=== PATIENT | female | born 1975 | race Caucasian/White ===

== ENCOUNTER → 2017-08-15 | Outpatient (CLI) | payer BC | END | disposition home or self-care (01) | LOC: MMGSC 12:13 | PROVIDERS: ATTEND Family Medicine | DX: N39.0 Urinary tract infection, site not specified (principal) | CPT/HCPCS: 87086 ==

== ENCOUNTER → 2017-11-02 | Outpatient (CLI) | payer BC | END | disposition home or self-care (01) | LOC: MMGSC 12:11 | PROVIDERS: ATTEND Family Medicine | DX: N39.0 Urinary tract infection, site not specified (principal) | CPT/HCPCS: 87077; 87086; 87186 ==

== ENCOUNTER → 2019-04-29 | Outpatient (CLI) | payer BC ==
--- NOTE | 2019-04-29 17:37 | CT ---
EXAMINATION TYPE: CT iac wo con DATE OF EXAM: 04/29/2019 COMPARISON: None HISTORY: Hearing Loss, right mastoid fullness posterior infection CT DLP: 150 mGycm Automated exposure control for dose reduction was used. FINDINGS: Very tiny amount of fluid may be within the couple of dependent right inferior mastoid air cells. No septal destruction is evident. Small amount of debris may be within the mid mastoid air cells. Left m astoid air cells are clear. There is some scattered debris within the mastoid air cells on the mullins l reconstructed images. This extends into the attic. This is in close approximation with the right si de ossicles although no definite contact is evident. Ossicles are normal orientation bilaterally. The middle ears appear clear. Cochlea appear normal external auditory canals appear clear. Temporoman dibular junctions are normal. Semicircular canals are unremarkable. Internal auditory canals appear n ormal without expansion or erosion. Cerebellar pontine angles are clear. IMPRESSION: FINDINGS APPEAR SUGGESTIVE FOR RESOLVING RIGHT MASTOIDITIS. SUSPICIOUS AIR-FLUID LEVELS OR SEPTAL BENITA TRUCTION IS NOT IDENTIFIED. DEBRIS REMAINS PRESENT WITHIN THE AERATED RIGHT SIDE MASTOID AIR CELLS.
== END | disposition home or self-care (01) ==
LOC: RADCTMAIN 14:02
PROVIDERS: ATTEND Otolaryngology
DX: H70.91 Unspecified mastoiditis, right ear (principal); H93.8X1 Other specified disorders of right ear
CPT/HCPCS: 70480

== ENCOUNTER → 2022-04-07 | Outpatient (CLI) | payer BC ==
--- NOTE | 2022-04-08 05:16 | MR ---
EXAMINATION TYPE: MR hip RT wo con DATE OF EXAM: 04/07/2022 COMPARISON: None HISTORY: Limited movement and pain right hip Multiplanar multiecho imaging of the pelvis and right hip with no contrast. On the T1 images there is abnormal decreased signal a large area of the superior right femoral head. There is curvilinear decreased signal in the superior left femoral head. The acetabula appear intact. Sacroiliac joints are intact. There is right hip joint effusion. No evidence of any significant left hip joint effusion. There is small amount of free fluid in the pelvis. Bladder distends smoothly. 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 Hip joint effusion. There is developing avascular necrosis in the left femoral head.
== END | disposition home or self-care (01) ==
LOC: RADMRIMAIN 15:01
PROVIDERS: ATTEND Orthopaedic Surgery
DX: M25.551 Pain in right hip (principal)

== ENCOUNTER → 2022-09-02 | Outpatient (CLI) | payer BC ==
[2022-09-02 16:15] LABS: Basophils # (A) 0.02 X 10*3/uL (0.00-0.10); Basophils % (A) 0.2 %; Eosinophils # (A) 0.02 X 10*3/uL (0.04-0.35); Eosinophils % (A) 0.2 %; HCT 40.4 % (37.2-46.3); HGB 12.6 g/dL (12.0-15.0); Immature Grans, Automated 0.4 %; Lymphocytes # (A) 0.95 X 10*3/uL (0.90-5.00); Lymphocytes % (A) 11.2 %; MCH 32.4 pg (27.0-32.0); MCHC 31.2 g/dL (32.0-37.0); MCV 103.9 fL (80.0-97.0); Monocytes # (A) 0.44 X 10*3/uL (0.20-1.00); Monocytes % (A) 5.2 %; NRBC Per 100 WBC 0 /100 WBCS (0.0-0.0); Neutrophils # (A) 7.04 X 10*3/uL (1.80-7.70); Neutrophils % (A) 82.8 %; Platelet Count 372 X 10*3/uL (140-440); RBC 3.89 X 10*6/uL (4.10-5.20)
[2022-09-02 16:23] LABS: INR 0.86 (0.90-1.11); Prothrombin Time 9.8 sec (9.9-11.9)
[2022-09-02 16:24] LABS: African American GFR (CKD) 77.7 (60.0-200.0); Anion Gap 11.5 mmol/L (10.00-18.00); BUN/Creat Ratio 13.98 Ratio (12.00-20.00); Blood Urea Nitrogen 13.9 mg/dL (9.0-27.0); Calcium 9.3 mg/dL (8.7-10.3); Carbon Dioxide 25.1 mmol/L (20.0-27.5); Non-African American GFR(CKD) 67.1 (60.0-200.0); Potassium 5.4 mmol/L (3.5-5.5)
== END | disposition home or self-care (01) ==
LOC: LABPAT 08:35
PROVIDERS: ATTEND Orthopaedic Surgery
DX: Z01.812 Encounter for preprocedural laboratory examination (principal); Z22.322 Carrier or suspected carrier of Methicillin resistant Staphylococcus aureus; M16.11 Unilateral primary osteoarthritis, right hip
CPT/HCPCS: 80048; 85025; 85610; 87070

== ENCOUNTER 2022-09-12 05:50 | Day surgery (SDC) | payer BC ==
[2022-09-08 15:31] VITALS: BMI 25.7
--- NOTE | 2022-09-11 08:22 | P.HPOR ---
History of Present Illness H&P Date: 09/11/22 Chief Complaint: Right hip pain The patient is a 47-year-old female who presents with progressive right hip pain for the past year and a half. She has pain with weightbearing activities. She's been limping. She notes it has progressed. Review of Systems As per HPI Past Medical History Past Medical History: Liver Disease Additional Past Medical History / Comment(s): pneumothorax x2. Wilsons disease History of Any Multi-Drug Resistant Organisms: None Reported Past Surgical History: Ear Surgery Additional Past Surgical History / Comment(s): liver transplant, lung surgery Past Anesthesia/Blood Transfusion Reactions: No Reported Reaction Additional Past Anesthesia/Blood Transfusion Reaction / Comment(s): after ear surgery pt said she came out of anesthesia "real fast" and caused some anxiety Past Psychological History: Anxiety Smoking Status: Never smoker Past Alcohol Use History: None Reported Past Drug Use History: None Reported - Past Family History Mother Family Medical History: No Reported History Medications and Allergies Home Medications Medication Instructions Recorded Confirmed Type Atorvastatin [Lipitor] 20 mg PO HS 09/08/22 09/08/22 History Butalb/Acetaminophen/Caffeine 1 each PO DIRECTED PRN 09/08/22 09/08/22 Histo ry [Fioricet 50-300-40 mg Capsule] Cyclosporine, Modified [Gengraf] 50 mg PO BID 09/08/22 09/08/22 History LORazepam [Ativan] 1 mg PO DIRECTED PRN 09/08/22 09/08/22 History Magnesium Oxide [Magnesium] 400 mg PO HS 09/08/22 09/08/22 History Magnesium Oxide [Magnesium] 800 mg PO QA 09/08/22 09/08/22 History Norethindrone [Elysia] 0.35 mg PO DAILY 09/08/22 09/08/22 History Omeprazole 20 mg PO HS 09/08/22 09/08/22 History amLODIPine BESYLATE/BENAZEPRIL 1 cap PO DAILY 09/08/22 09/08/22 History [amLODIPine BESYLATE/BENAZEPRIL 5-20 mg] azaTHIOprine [Imuran] 100 mg PO BID 09/08/22 09/08/22 History Allergies Allergy/AdvReac Type Severity Reaction Status Date / Time casirivimab Allergy Rash/Hives Verified 09/08/22 15:11 fluconazole [From Diflucan] Allergy Rash/Hives Verified 09/08/22 15:11 levofloxacin [From Levaquin] Allergy Rash/Hives Verified 09/08/22 15:11 nitrofurantoin Allergy Rash/Hives Verified 09/08/22 15:11 Penicillins Allergy Rash/Hives Verified 09/08/22 15:11 Sulfa (Sulfonamide Allergy Rash/Hives Verified 09/08/22 15:11 Antibiotics) morphine AdvReac Itching Verified 09/08/22 15:11 Physical Examination - Hip right Gait: antalgic Tenderness with palpation: anterior Pain with motion: internal rotation and hip flexion ROM: flexion: 80 degrees ROM: internal rotation: 0 degrees (With pain) ROM: external rotation: 50 degrees Crepitus with motion: Yes Strength: extension: 5/5 Strength: flexion: 5/5 Strength: abduction: 5/5 Tests: impingement tests: positive Results The patient is a well-developed well-nourished female approximately 5 foot 7, 150 pounds of mesomorphic habitus. HEENT exam is nonfocal, neck is supple. She is nontender about the lumbar spine. Straight leg raise is negative and the right lower extremity. Her distal neurovascular appears intact in the right lower extremity. - Diagnostic results Hip x-ray: image reviewed (Right hip x-rays obtained in the office show avascular necrosis of the right femoral head with collapse. 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 This point she's quite limited because of pain that has progressed. After through discussion she opted to proceed with surgery. We will plan to proceed with right total hip arthroplasty utilizing a direct anterior approach. Risks and benefits were discussed at length in layman's terms. She has been off her immunosuppressive medications per her transplant physician.
[~2022-09-12 05:50] MED LIST: ACETAMINOPHEN TAB 500 MG TAB PO PRN; MELOXICAM 7.5 MG TAB PO PRN; TRANEXAMIC ACID IN NACL,ISO-OS 1,000 MG in SALINE 1 100ML.BAG IVPB PRN
[2022-09-12] MEDS ORDERED: DEXAMETHASONE SOD PHOSPHATE 4 MG/ML 1 ML VIAL IV ONE (06:17)
[2022-09-12] MEDS ORDERED: LIDOCAINE 1% (10MG/ML) FOR IV START INTRADERMA PRN (06:17)
[2022-09-12] MEDS ORDERED: ONDANSETRON 4 MG/2 ML VIAL IVP ONE (06:17)
[2022-09-12] MEDS: LACTATED RINGERS 1,000 ML IV SCH (06:43)
[2022-09-12] MEDS ORDERED: SCOPOLAMINE 1 MG/72 HR PATCH TRANSDERM ONE (07:37)
[2022-09-12] MEDS ORDERED: MIDAZOLAM 2 MG/2 ML VIAL IVP ONE (07:48)
[2022-09-12] MEDS ORDERED: fentaNYL (PF) 50 MCG/1 ML VIAL IVP ONE (07:48)
[2022-09-12] MEDS ORDERED: diphenhydrAMINE 50 MG/ML 1 ML VIAL ONE (07:55)
[2022-09-12] MEDS ORDERED: MIDAZOLAM 2 MG/2 ML VIAL ONE (07:55)
[2022-09-12] MEDS ORDERED: PROPOFOL 10 MG/ML 20 ML VIAL IV ONE (07:55)
[2022-09-12] MEDS ORDERED: TRANEXAMIC ACID IN NACL,ISO-OS 1,000 MG/100 ML BAG ONE (07:55)
[2022-09-12] MEDS ORDERED: LIDOCAINE 2% INJ 20 MG/ML (2 ML VIAL) ONE (07:55)
[2022-09-12] MEDS ORDERED: SUCCINYLCHOLINE CHLORIDE 200 MG/10 ML VIAL IV ONE (07:55)
[2022-09-12] MEDS ORDERED: fentaNYL (PF) 50 MCG/ML 2 ML AMP ONE (07:55)
[2022-09-12] MEDS ORDERED: ROPIVACAINE 5 MG/ML 30 ML VIAL ONE (07:55)
[2022-09-12] MEDS ORDERED: PHENYLEPHRINE-0.9% NACL SYG 1,000 MCG/10 ML SYRINGE ONE (07:55)
--- NOTE | 2022-09-12 07:59 | P.ANPRN ---
Procedure Note - Anesthesia - Nerve Block Performed Right Erector Spinae Time Out Performed: Yes Date of Procedure: 09/12/22 Procedure Start Time: 07:40 Procedure Stop Time: 07:55 Location of Patient: PreOp Indication: Acute Post-Operative Pain, Requested by Surgeon Sedation Type: Sedate with meaningful contact maintained Preparation: Sterile Prep, Sterile Dressing Position: Prone Needle Types: Pajunk Needle Gauge: 21 Ultrasound used to visualize needle placement: Yes Ultrasound used to observe medication spread: Yes Injectate: 0.5% Ropivacaine (see comment for volume) Blood Aspirated: No Pain Paresthesia on Injection Noted: No Resistance on Injection: Normal Image Stored and Saved: Yes Events: Uneventful and Well Tolerated
[2022-09-12] MEDS ORDERED: LACTATED RINGERS 1,000 ML IV ONE (09:30)
[2022-09-12] MEDS ORDERED: HYDROmorphone 1 MG/ML 1 ML SYRINGE IVP PRN (10:00)
[2022-09-12] MEDS ORDERED: MAGNESIUM HYDROXIDE 2,400 MG/10 ML CUP PO PRN (10:00)
[2022-09-12] MEDS ORDERED: HYDROcodone/APAP 5-325MG 1 EACH TAB PO PRN (10:00)
[2022-09-12] MEDS ORDERED: NALOXONE 0.4 MG/ML 1 ML VIAL IV PRN (10:00)
--- NOTE | 2022-09-12 10:20 | P.OP ---
Date of Procedure: 09/12/22 Preoperative Diagnosis: Right hip avascular necrosisstage III Postoperative Diagnosis: Same Procedure(s) Performed: Right total hip arthroplastypress-fitanterior approach Implants: Depuy Corail size 07/25/2025 degree collared press-fit femoral stem, 36+1.5 ceramic femoral head, 52 mm Rebecca acetabular shell with neutral polyethylene liner. Anesthesia: GETA, regional, spinal Surgeon: Leroy Carreno Roller Turner #1: Hilton Merino Estimated Blood Loss (ml): 100 Pathology: other (Femoral head) Condition: stable Disposition: PACU Indications for Procedure: The patient's a 47-year-old female presents with progressive right hip pain secondary to avascular necrosis. A discussion of the risks and benefits of operative intervention was made with patient. She opted to proceed with surgery. She was off her immunosuppressive medications prior the procedure. He discussion of the risks and benefits of the operative procedure were discussed including infection, neurovascular injury, development of blood clots, fracture, leg length discrepancy, possible component loosening/failure and need for subsequent procedures was discussed. Informed consent was obtained. Operative Findings: As below Description of Procedure: The patient was brought to the operating room, and after induction of spinal anesthesia was placed supine on the Maureen table. Positioning was checked with fluoroscopy. The right hip was then prepped and draped in a normal fashion. A 12 cm incision was then made starting 2 fingerbreadths distal and 3 finger breaths posterior to the ASIS in line with the proximal femur. The skin was incised sharply. Subcutaneous tissues were divided sharply. Electrocautery was used for hemostasis. The fascia was split in line with skin incision. The interval between the sartorius and tensor fascia quintin was then bluntly developed. The posterior fascia was opened with electrocautery. The lateral circumflex vessels were identified and cauterized prior to sectioning. A retractor was placed along the superior femoral neck as well as the anterior acetabular rim. A wide capsulotomy was performed. The neck cut was then made at a 45 angle to the shaft approximately 1 1/2 cm above the level of the lesser trochanter. The head was extracted. Attention was then paid towards preparing the acetabular. Anterior and posterior retractors were placed. The remaining capsular labral tissue sharply debrided clearly defining the acetabular margins. I began reaming with a 45 mm reamer taking care to initially medialize then reaming at 45 of abduction and 20 of anteversion. Sequential reaming is performed up to 51 mm. A trial to 2 mm acetabular shell was inserted in the same orientation and was fully seated. There was good rim fit and stability. Positioning was checked with fluoroscopy. The final to 2 mm acetabular shell was inserted again at 45 of abduction and 20 of anteversion. This was fully seated. There was good rim fit and stability. I did place a posterior superior screw measuring 25 mm x 6.5 mm with good purchase. Again fluoroscopy was used to check the adequacy of placement. A neutral polyethylene liner was gently impacted. Care was taken to avoid any soft tissue interposition. Pulsatile lavage was utilized. Attention was then paid towards preparing the proximal femur. The central region was cleared of soft tissue. A canal finder was used to find the femoral canal. Sequential broaching was performed up to size 11 taking care to lateralize proximally. A calcar mill was used to fashion the medial calcar. There was good rotational stability. A 125 neck along with a 36 mm +1.5 head was placed. The hip was gently reduced. Fluoroscopy was used to check the adequacy of positioning along with leg lengths. I felt both were good. The hip was gently dislocated. The trial components were removed. The final size 11 collared 125 press-fit femoral stem was inserted parallel to the posterior cortex. This was fully seated and there was good rotational stability. A 36 mm +1.5 ceramic head was placed. This was gently impacted. The hip was then gently reduced. Final fluoroscopic view showed adequate placement implant along with confucianism of leg length. Stability was checked with 80 of external rotation and 60 of extension of the right hip. The wound was irrigated with sterile lavage. The fascia was closed with running 0 Vicryl suture. There was minimal drainage therefore a deep drain was not placed. The second dose of IV TXA was given. The subcutaneous tissues were reapproximated interrupted 2-0 Vicryl sutures. The skin was reapproximated with 3-0 subcuticular strata fix suture. Skin tape and adhesive was applied. A sterile dressing was applied. The patient was then awoken from sedation and transferred to recovery room in good condition. Blood loss was estimated at 100 mL. No complications were incurred. Sponge and needle counts were correct at the end of the case. Hilton HAIRSTON assisted during the major components is case to include exposure, bone resection, implantation, and closure.
[2022-09-12] MEDS: HYDROmorphone 0.5 MG/0.5 ML SYRINGE IVP PRN ×4 (10:37→20:23)
--- NOTE | 2022-09-12 11:01 | FL ---
Intraoperative/procedural fluoroscopic services were provided. Total fluoroscopy time is 58 seconds w ith a total of 3 submitted images to PACS. Please see the operative/procedural note for further detai ls.
--- NOTE | 2022-09-12 11:02 | XR ---
EXAMINATION TYPE: XR Hip Limited RT DATE OF EXAM: 09/12/2022 10:37 AM INDICATION: Patient age:Female; 47 years old; Reason for study: post op; COMPARISON: Right hip MRI. TECHNIQUE: The right hip was examined in the frontal. FINDINGS: Post arthroplasty changes, hardware is intact, alignment is appropriate. No evidence of fra cture. Postoperative changes soft tissue. No evidence of any acute osseous pathology or joint disloca tion. IMPRESSION: Total hip arthroplasty with hardware intact and in appropriate alignment. No acute fracture.
[2022-09-12] MEDS: HYDROcodone/APAP 7.5-325MG 1 EACH TAB PO PRN ×2 (12:20→18:31)
[2022-09-12] MEDS ORDERED: LORazepam 1 MG TAB PO PRN (13:18)
--- NOTE | 2022-09-12 13:21 | P.CONS ---
History of Present Illness - Reason for Consult Consult date: 09/12/22 med management - Chief Complaint s/p right hip arthroplasty - History of Present Illness Patient is a 47-year-old female with history of Preet's disease, status post liver transplant, avascular necrosis of right hip presenting for elective right total hip arthroplasty. [facility] [place] physicians was consulted for medical management. She denies any chest pain, shortness of breath, abdominal pain, nausea, vomiting, diarrhea, constipation, or urinary complaints. She claims that she has some pain in her right hip at the moment. She has not gotten out of bed as of yet. Patient seen and examined at bedside. Pertinent positives and negatives as discussed in HPI, a complete review of systems was performed and all other systems are negative. Vital signs reviewed General: nontoxic, no distress, appears at stated age Derm: warm, dry, right hip dressing clean dry and intact Head: atraumatic, normocephalic, symmetric Eyes: EOMI, no lid lag, anicteric sclera, pupils equal round reactive to light ENT: Nose and ears atraumatic Neck: No thyromegaly, supple Mouth: no lip lesion, mucus membranes moist Cardiovascular: S1S2 reg, no murmur, no edema Lungs: clear to auscultation bilateral, no rhonchi, no rales, no wheeze, no accessory muscle use Abdominal: soft, nontender to palpation, no guarding, no appreciable organomegaly Ext: no gross muscle atrophy, muscle strength muscle strength 5 out of 5 in all 4 extremities, no contractures Neuro: CN II-XII grossly intact Psych: Alert, oriented, appropriate affect Assessment/Plan: Avascular necrosis of right hip Status post total right hip arthroplasty -Management per orthopedics with regards to pain management, DVT prophylaxis -PT/OT History of Preet's disease Status post liver transplant History of hypertension -Home medications reviewed and reconciled Thank you for allowing us to participate in the care of this pleasant patient. Do not hesitate to contact us with questions. Someone can be reached from the [facility] [place] [facility] hospitalist group all hours of the day at [phone] or via [employer]. Past Medical History Past Medical History: Liver Disease Additional Past Medical History / Comment(s): pneumothorax x2. Wilsons disease History of Any Multi-Drug Resistant Organisms: None Reported Past Surgical History: Ear Surgery Additional Past Surgical History / Comment(s): liver transplant, lung surgery Past Anesthesia/Blood Transfusion Reactions: No Reported Reaction Additional Past Anesthesia/Blood Transfusion Reaction / Comm: after ear surgery pt said she came out of anesthesia "real fast" and caused some anxiety Smoking Status: Never smoker - Past Family History Mother Family Medical History: No Reported History Medications and Allergies Home Medications Medication Instructions Recorded Confirmed Type Atorvastatin [Lipitor] 20 mg PO HS 09/08/22 09/08/22 History Butalb/Acetaminophen/Caffeine 1 each PO DIRECTED PRN 09/08/22 09/12/22 History [Fioricet 50-300-40 mg Capsule] Cyclosporine, Modified [Gengraf] 50 mg PO BID 09/08/22 09/08/22 History LORazepam [Ativan] 1 mg PO DIRECTED PRN 09/08/22 09/08/22 History Magnesium Oxide [Magnesium] 400 mg PO HS 09/08/22 09/08/22 History Magnesium Oxide [Magnesium] 800 mg PO QAM 09/08/22 09/08/22 History Norethindrone [Elysia] 0.35 mg PO DAILY 09/08/22 09/08/22 History Omeprazole 20 mg PO HS 09/08/22 09/08/22 History amLODIPine BESYLATE/BENAZEPRIL 1 cap PO DAILY 09/08/22 09/08/22 History [amLODIPine BESYLATE/BENAZEPRIL 5-20 mg] azaTHIOprine [Imuran] 100 mg PO BID 09/08/22 09/08/22 History Allergies Allergy/AdvReac Type Severity Reaction Status Date / Time casirivimab Allergy Rash/Hives Verified 09/12/22 06:22 fluconazole [From Diflucan] Allergy Rash/Hives Verified 09/12/22 06:22 levofloxacin [From Levaquin] Allergy Rash/Hives Verified 09/12/22 06:22 nitrofurantoin Allergy Rash/Hives Verified 09/12/22 06:22 Penicillins Allergy Rash/Hives Verified 09/12/22 06:22 Sulfa (Sulfonamide Allergy Rash/Hives Verified 09/12/22 06:22 Antibiotics) morphine AdvReac Itching Verified 09/12/22 06:22 Physical Exam Vitals: Vital Signs Temp Pulse Pulse Resp BP Pulse Ox 09/12/22 10:44 73 16 138/66 98 09/12/22 10:29 75 16 136/63 98 09/12/22 10:14 97 F L 90 16 129/73 09/12/22 08:00 92 16 136/92 100 09/12/22 06:49 98.0 F 92 18 142/86 100 Intake and Output 09/11/22 09/12/22 09/12/22 22:59 06:59 14:59 Intake Total 100 1600 Output Total 100 Balance 100 1500 Intake: IV 100 1600 Output: Estimated Blood Loss 100 Other: Weight 69 kg 69 kg
[2022-09-12] MEDS ORDERED: PANTOPRAZOLE 40 MG TABLET PO SCH (21:00)
[2022-09-12] MEDS ORDERED: ATORVASTATIN 20 MG TAB PO SCH (21:00)
[2022-09-12] MEDS ORDERED: SENNOSIDES-DOCUSATE SODIUM 1 EACH TAB PO SCH (21:00)
[2022-09-12] MEDS ORDERED: azaTHIOprine 50 MG TAB PO SCH (21:00)
[2022-09-12] MEDS ORDERED: MAGNESIUM OXIDE 400 MG TAB PO SCH (21:00)
[2022-09-13] MEDS: HYDROcodone/APAP 7.5-325MG 1 EACH TAB PO PRN ×3 (00:33→12:36)
[2022-09-13] MEDS ORDERED: azaTHIOprine 50 MG TAB PO SCH ×4 (02:23→18:00)
[2022-09-13] MEDS: amLODIPine 5 MG TAB PO SCH ×2 (05:39→08:38)
[2022-09-13] MEDS ORDERED: MAGNESIUM OXIDE 400 MG TAB PO SCH (06:00)
[2022-09-13] MEDS ORDERED: lisinopriL 20 MG TAB PO SCH (06:00)
[2022-09-13] MEDS: LACTATED RINGERS 1,000 ML IV SCH (06:21)
[2022-09-13 08:26] VITALS: BP 139/78; PULSE 96; RESP 16; TEMP 98.2
[2022-09-13] MEDS: HYDROmorphone 0.5 MG/0.5 ML SYRINGE IVP PRN (08:44)
[2022-09-13] MEDS ORDERED: RIVAROXABAN 10 MG TAB PO SCH (09:00)
[2022-09-13] MEDS ORDERED: NON FORMULARY DRUG (Norethindrone [Camila] 0.35 MG Tablet) PO SCH (09:00)
[2022-09-13 10:17] LABS: HCT 32.3 % (37.2-46.3); HGB 10.1 g/dL (12.0-15.0); MCH 33.1 pg (27.0-32.0); MCHC 31.3 g/dL (32.0-37.0); MCV 105.9 fL (80.0-97.0); Mean Platelet Volume 11.1 fL (9.5-12.2); NRBC Per 100 WBC 0 /100 WBCS (0.0-0.0); Platelet Count 299 X 10*3/uL (140-440); RBC 3.05 X 10*6/uL (4.10-5.20); RDW 15.3 % (11.5-14.5); WBC 7.07 X 10*3/uL (4.50-10.00)
--- NOTE | 2022-09-13 10:37 | P.PN ---
Subjective Progress Note Date: 09/13/22 Principal diagnosis: status post right anterior right total hip arthroplasty Patient evaluated at bedside, she is resting in her hospital bed. She has been up and ambulating with physical therapy. She's been urinating with no difficulties. She did have used dilaudid this morning for increasing pain. She denies any headaches, lightheadedness, chest pain or shortness of breath at this time. Objective - Vital Signs Vital signs: Vital Signs Temp 98.2 F 09/13/22 08:00 Pulse 96 09/13/22 08:00 Resp 16 09/13/22 08:00 BP 139/78 09/13/22 08:00 Pulse Ox 99 09/13/22 08:00 FiO2 Intake & Output 09/12/22 09/13/22 09/13/22 18:59 06:59 18:59 Intake Total 1600 Output Total 100 Balance 1500 Weight 69 kg Intake: IV 1600 Output: Estimated Blood Loss 100 Other: Voiding Method Toilet # Voids 1 2 - Exam Right lower extremity: Incision is clean, dry, and intact. The exofin fusion tape is in good condition. There is minimal soft tissue swelling and ecchymosis surrounding the medial and lateral aspects of the incision. Calf is soft, no tenderness with palpation. Plantar flexion, dorsiflexion, EHL, FHL are intact. Sensory exam to light touch throughout the extremity is intact, dorsal pedis pulses 2+. - Labs CBC & Chem 7: 09/13/22 05:47 Labs: Abnormal Lab Results - Last 24 Hours (Table) 09/13/22 Range/Units 05:47 RBC 3.05 L (4.10-5.20) X 10*6/uL Hgb 10.1 L (12.0-15.0) g/dL Hct 32.3 L (37.2-46.3) % MCV 105.9 H (80.0-97.0) fL MCH 33.1 H (27.0-32.0) pg MCHC 31.3 L (32.0-37.0) g/dL RDW 15.3 H (11.5-14.5) % Assessment and Plan Assessment: Postoperative day #1 status post right anterior right total hip arthroplasty Plan: Pain control, plan for discharge home on oral medication DVT prophylaxis, Eliquis 2.5mg bid Wound care instructions discussed, this including both dressing changes and show ering instructions Home physical therapy/nursing after discharge Medical recommendations Discharge planning: Stable for discharge home today Time with Patient: Less than 30
--- NOTE | 2022-09-13 10:42 | P.DS ---
Providers Date of admission: 09/12/2022 Expected date of discharge: 09/13/22 Attending physician: Leroy Carreno Consults: 09/12/22 10:04 Consult Physician Routine Consulting Provider: Nella Parsons Consult Reason/Comments: Medical Management s/p RTHA Do you want consulting provider notified?: Yes Primary care physician: Mary [facility] Course: Date of admission: 09/12/2022 Date of discharge: 09/13/2022 Admission diagnosis: Status post direct anterior right total hip arthroplasty Discharge diagnosis: Same Attending physician: Dr. Carreno Surgical procedures: Direct anterior right total hip arthroplasty Brief history: Patient is a 47-year-old female with a history of avascular necrosis of the right hip. At this point patient has failed conservative tr eatment measures and has opted to proceed with a elective direct anterior right total hip arthroplasty. Hospital course: Details of patient's surgery can be found in operative report. Patient tolerated the procedure well and was subsequently transported to orthopedic floor. Patient's orthopeidc and medical care was provided daily. Patient had daily laboratory tests performed for evaluation of overall blood counts. Patient had daily physical therapy to include strengthening range of motion as well as education with walker ambulation. Patient was treated with Xarelto for their postoperative DVT prophylaxis during their inpatient stay. Patient was noted to have a relatively uneventful postoperative course. Patient reported satisfactory pain control with oral pain medications by postoperative day 0. Patient showed satisfactory progress with physical therapy. Patient moved steadily through the program and had no difficulty meeting the goals by postoperative day 1. Given patient's otherwise satisfactory course and having met physical therapy goals, plan is to discharge patient home on postoperative day 1. Discharge condition/disposition: Patient will be discharged home in stable condition. Discharge medications: Instructions are given on resumption of patient's normal daily medications per primary care recommendation, in addition patient will be prescribed [place] 7.5 mg/325 mg, senna S, Eliquis 2.5mg. Discharge instructions: 1. Wound care and infection precautions, keep incision dry and covered while showering, no lotions, creams, moisturizers. No soaking, tubs, pools, hottubs. Do not scrub over the incision. 2. Weight-bear as tolerated with walker / cane until follow-up. 3. Ice and elevate when necessary. Do not exceed 20 minutes per hour with ice pack. 4. Utilize compression sleeve until seen at first follow up appointment. 5. Visiting nursing care. 6. Home physical therapy. 7. Pain meds and anticoagulants per prescription. 8. Pain medication has potential to cause constipation. Increase oral fluid and fiber intake. Contact primary care provider if you have not had a bowel movement within 48 hours after discharge 9. No anti-inflammatory medication until discussed at first post operative visit, this including Motrin, Aleve, Mobic, Diclofenac. 10. Follow up in office at 2 weeks postop with Tristen Finley PA-C/Hilton Vázquez 11. Follow up with your primary care doctor 7-10 days after discharge. 12. Contact [facility] with any questions, . Procedures: Direct anterior right total hip arthroplasty Patient Condition at Discharge: Good Plan - Discharge Summary Discharge Rx Participant: No New Discharge Prescriptions: New HYDROcodone/APAP 7.5-325MG [[place] 7.5] 1 - 2 each PO Q6HR PRN #42 tab PRN Reason: Pain Apixaban [Eliquis] 2.5 mg PO BID #60 tab Sennosides/Docusate Sodium [Senna-S 8.6-50 mg Tablet] 1 each PO DAILY PRN #30 tablet PRN Reason: Constipation Continue LORazepam [Ativan] 1 mg PO DIRECTED PRN PRN Reason: Anxiety amLODIPine BESYLATE/BENAZEPRIL [amLODIPine BESYLATE/BENAZEPRIL 5-20 mg] 1 cap PO DAILY Omeprazole 20 mg PO HS Atorvastatin [Lipitor] 20 mg PO HS azaTHIOprine [Imuran] 100 mg PO BID Magnesium Oxide [Magnesium] 400 mg PO HS Magnesium Oxide [Magnesium] 800 mg PO QAM Butalb/Acetaminophen/Caffeine [Fioricet 50-300-40 mg Capsule] 1 each PO DIRECTED PRN PRN Reason: Migraine Headache Cyclosporine, Modified [Gengraf] 50 mg PO BID Norethindrone [Elysia] 0.35 mg PO DAILY Discharge Medication List Atorvastatin [Lipitor] 20 mg PO HS 09/08/22 [History] Butalb/Acetaminophen/Caffeine [Fioricet 50-300-40 mg Capsule] 1 each PO DIRECTED PRN 09/08/22 [History] Cyclosporine, Modified [Gengraf] 50 mg PO BID 09/08/22 [History] LORazepam [Ativan] 1 mg PO DIRECTED PRN 09/08/22 [History] Magnesium Oxide [Magnesium] 400 mg PO HS 09/08/22 [History] Magnesium Oxide [Magnesium] 800 mg PO QAM 09/08/22 [History] Norethindrone [Elysia] 0.35 mg PO DAILY 09/08/22 [History] Omeprazole 20 mg PO HS 09/08/22 [History] amLODIPine BESYLATE/BENAZEPRIL [amLODIPine BESYLATE/BENAZEPRIL 5-20 mg] 1 cap PO DAILY 09/08/22 [History] azaTHIOprine [Imuran] 100 mg PO BID 09/08/22 [History] Apixaban [Eliquis] 2.5 mg PO BID #60 tab 09/13/22 [Rx] HYDROcodone/APAP 7.5-325MG [[place] 7.5] 1 - 2 each PO Q6HR PRN #42 tab 09/13/22 [Rx] Sennosides/Docusate Sodium [Senna-S 8.6-50 mg Tablet] 1 each PO DAILY PRN #30 tablet 09/13/22 [Rx] Follow up Appointment(s)/Referral(s): [facility], [NON-STAFF] - 1-2 Days ([facility] will call you to schedule your in home physical therapy and nursing visits. ) Leroy Carreno MD [STAFF PHYSICIAN] - 2 Weeks Patient Instructions/Handouts: Knee Replacement (DC) Activity/Diet/Wound Care/Special Instructions: Orthopedic Discharge Instructions: 1. Wound care and infection precautions, keep incision dry and covered while showering, no lotions, creams, moisturizers. No soaking, pools, hot tubs. Do not scrub over incision. 2. Weight-bear as tolerated with walker / cane until follow-up. 3. Ice and elevate when necessary. Do not exceed 20 minutes per hour with ice pack. 4. Utilize compression sleeve until seen at first follow up appointment. 5. Pain meds and anticoagulants per prescription. 6. Pain medication has potential to cause constipation. Increase oral fluid and fiber intake. Contact primary care provider if you have not had a bowel movement within 48 hours after discharge. 7. No anti-inflammatory medication until discussed at first post operative visit, this including Motrin, Aleve, Mobic, Diclofenac. 8. Follow up in office at 2 weeks postop with Tristen Finley PA-C / Hilton Merino PA-C 9. Follow up with your primary care doctor 7-10 days after discharge. 10. Contact [facility] with any questions, . Keep incision clean, dry, intact. While showering, cover mesh tape with Saran wrap. Keep mesh tape on until follow-up appointment in office in 2 weeks. Discharge Disposition: HOME WITH HOME HEALTH SERVICES
[2022-09-13 11:00] LABS: Basophils # (A) 0.01 X 10*3/uL (0.00-0.10); Basophils % (A) 0.1 %; Eosinophils # (A) 0 X 10*3/uL (0.04-0.35); Eosinophils % (A) 0 %; Immature Grans, Automated 0.3 %; Lymphocytes # (A) 1.05 X 10*3/uL (0.90-5.00); Lymphocytes % (A) 14.9 %; Monocytes # (A) 0.73 X 10*3/uL (0.20-1.00); Monocytes % (A) 10.3 %; Neutrophils # (A) 5.26 X 10*3/uL (1.80-7.70); Neutrophils % (A) 74.4 %
--- NOTE | 2022-09-13 11:26 | P.PN ---
Subjective Progress Note Date: 09/13/22 Principal diagnosis: med management Subjective: Patient seen and examined at bedside. No acute events overnight. He claims that she has minimal pain in her right hip. She denies any chest pain, shortness of breath, abdominal pain, nausea, vomiting, diarrhea, constipation, or urinary complaints. Pertinent positives and negatives as discussed above, a complete review of systems was performed and all other systems are negative. Vitals Signs Reviewed. General: nontoxic, no distress, appears at stated age Derm: warm, dry, right hip dressing clean dry and intact Head: atraumatic, normocephalic, symmetric Eyes: EOMI, no lid lag, anicteric sclera, pupils equal round reactive to light ENT: Nose and ears atraumatic Neck: No thyromegaly, supple Mouth: no lip lesion, mucus membranes moist Cardiovascular: S1S2 reg, no murmur, no edema Lungs: clear to auscultation bilateral, no rhonchi, no rales, no wheeze, no accessory muscle use Abdominal: soft, nontender to palpation, no guarding, no appreciable organomegaly Ext: no gross muscle atrophy, muscle strength muscle strength 5 out of 5 in all 4 extremities, no contractures Neuro: CN II-XII grossly intact Psych: Alert, oriented, appropriate affect Assessment and Plan: Avascular necrosis of right hip Status post total right hip arthroplasty -Management per orthopedics with regards to pain management, DVT prophylaxis -PT/OT History of Preet's disease Status post liver transplant History of hypertension -resumed home medications Patient is medically optimized for discharge home. Thank you for allowing us to participate in the care of this pleasant patient. Do not hesitate to contact us with questions. Someone can be reached from the [facility] hospitalist group all hours of the day at [phone] or via [employer]. Objective - Vital Signs Vital signs: Vital Signs Temp 98.2 F 09/13/22 08:00 Pulse 96 09/13/22 08:00 Resp 16 09/13/22 08:00 BP 139/78 09/13/22 08:00 Pulse Ox 99 09/13/22 08:00 FiO2 Intake & Output 09/12/22 09/13/22 09/13/22 18:59 06:59 18:59 Intake Total 1600 Output Total 100 Balance 1500 Weight 69 kg Intake: IV 1600 Output: Estimated Blood Loss 100 Other: Voiding Method Toilet # Voids 1 2 - Labs CBC & Chem 7: 09/13/22 05:47 Labs: Abnormal Lab Results - Last 24 Hours (Table) 09/13/22 Range/Units 05:47 RBC 3.05 L (4.10-5.20) X 10*6/uL Hgb 10.1 L (12.0-15.0) g/dL Hct 32.3 L (37.2-46.3) % MCV 105.9 H (80.0-97.0) fL MCH 33.1 H (27.0-32.0) pg MCHC 31.3 L (32.0-37.0) g/dL RDW 15.3 H (11.5-14.5) % Eosinophils # 0 L (0.04-0.35) X 10*3/uL
== END 2022-09-13 13:31 | disposition home health service (06) ==
LOC: OR 05:50 → 4SSUR 10:05 → OR 09-13 13:31
PROVIDERS: ATTEND Orthopaedic Surgery
DX: M87.851 Other osteonecrosis, right femur (principal); G89.18 Other acute postprocedural pain; F41.9 Anxiety disorder, unspecified; Z94.4 Liver transplant status; Z79.899 Other long term (current) drug therapy; Z88.3 Allergy status to other anti-infective agents; Z88.1 Allergy status to other antibiotic agents; Z88.5 Allergy status to narcotic agent; Z88.2 Allergy status to sulfonamides; Z96.641 Presence of right artificial hip joint
CPT/HCPCS: 97161; 64461; 86900; 86901; 86850; 84703; 73501; 27130; C1776; J7500; J2250; J1100; J0690; J2405; J7515; J1170; J3010; 85025; 88305; 88311

== ENCOUNTER 2023-11-09 05:58 | Day surgery (SDC) | payer BC ==
[~2023-11-09 05:58] MED LIST changes: -ACETAMINOPHEN TAB 500 MG TAB PO PRN; +LIDOCAINE 1% (10MG/ML) FOR IV START INTRADERMA PRN; -MELOXICAM 7.5 MG TAB PO PRN; -TRANEXAMIC ACID IN NACL,ISO-OS 1,000 MG in SALINE 1 100ML.BAG IVPB PRN
[2023-11-09] MEDS: LACTATED RINGERS 1,000 ML IV SCH (06:50)
[2023-11-09] MEDS ORDERED: LIDOCAINE 1% INJ 10MG/ML (20 ML MDV) ONE (07:00)
[2023-11-09] MEDS ORDERED: MIDAZOLAM 2 MG/2 ML VIAL ONE (07:00)
[2023-11-09] MEDS ORDERED: PROPOFOL 10 MG/ML 20 ML VIAL IV ONE (07:00)
[2023-11-09] MEDS ORDERED: ONDANSETRON 4 MG/2 ML VIAL IVP PRN (07:00)
[2023-11-09 07:09] VITALS: TEMP 97.5
--- NOTE | 2023-11-09 07:56 | P.PCN ---
Date of Procedure: 11/09/23 Procedure(s) Performed: Brief history: Patient is a pleasant 48-year-old white female scheduled for an elective upper endoscopy as well as colonoscopy as a part of evaluation of iron deficiency anemia. 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 Procedure performed: Esophagogastroduodenoscopy with biopsy Colonoscopy Preoperative diagnosis: Iron deficiency anemia Anesthesia: [place] Procedure: After informed consent was obtained from the patient was brought into the endoscopy unit and IV sedation was administered by anesthesia under continuous monitoring. Initially upper endoscopy was done. The Olympus GF 160 video endoscope was inserted inserted into the mouth and esophagus intubated without any difficulty and was gradually advanced into the stomach and duodenum and carefully examined. The bulb and second part of the duodenum appeared normal. His were done from the duodenum to rule out celiac disease. The scope was then withdrawn into the stomach adequately insufflated with air and upon careful examination the antrum had mild gastritis and biopsies were done from this area. Mucosa of the body, cardia and fundus appeared normal. The scope was then withdrawn into the esophagus. The hiatal hernia noted. The GE junction was located at 40 cm to the incisors. It appeared regular with superficial erosions consistent with LA grade B reflux esophagitis.. Rest of the esophagus appeared normal. Patient tolerated the procedure well. At this time the patient continued to remain sedation. Initial digital rectal examination was normal. Olympus CF 160 video colonoscope was then inserted into the rectum and gradually advanced to the cecum without any difficulty. Careful examination was performed as the scope was gradually being withdrawn. The prep was excellent. The cecum, ascending colon, transverse colon, descending colon, sigmoid colon and rectum appeared normal. Retroflexion was performed in the rectum and no lesions were noted. Patient tolerated the procedure well. Impression: 1. Upper endoscopy revealed mild antral gastritis, small hiatal hernia and LA grade B reflux esophagitis 2. Colonoscopy was within normal limits with no evidence of colorectal neoplasia Recommendations: Findings of this examination were discussed with the patient as well as a family. She was advised to follow with the biopsies results. Continue with omeprazole 20 mg daily and follow antireflux measures. Recommend repeat screening colonoscopy in 10 years.
[2023-11-09 08:11] VITALS: BP 120/85; PULSE 88; RESP 20
== END 2023-11-09 08:33 | disposition home or self-care (01) ==
LOC: ORWHC2ENDO 05:58
PROVIDERS: ATTEND Internal Medicine Gastroenterology
DX: K29.50 Unspecified chronic gastritis without bleeding (principal); K21.00 Gastro-esophageal reflux disease with esophagitis, without bleeding; K44.9 Diaphragmatic hernia without obstruction or gangrene; D50.9 Iron deficiency anemia, unspecified; E83.01 Wilson's disease; I10 Essential (primary) hypertension; E78.5 Hyperlipidemia, unspecified; J93.11 Primary spontaneous pneumothorax; F41.9 Anxiety disorder, unspecified; M87.059 Idiopathic aseptic necrosis of unspecified femur; Z94.4 Liver transplant status; Z79.899 Other long term (current) drug therapy; Z88.1 Allergy status to other antibiotic agents; Z88.0 Allergy status to penicillin; Z88.8 Allergy status to other drugs, medicaments and biological substances; Z88.5 Allergy status to narcotic agent
CPT/HCPCS: 81025; 88305; 45378; 43239; J2250; J2001; J2704

== ENCOUNTER → 2024-02-16 | Outpatient (CLI) | payer BC ==
[2024-02-16 08:58] LABS: INR 0.9 (<1.2); Partial Thromboplastin Time 25.1 sec (22.0-30.0); Prothrombin Time 10.4 sec (10.0-12.5)
[2024-02-16 13:29] LABS: Basophils # (A) 0.03 X 10*3/uL (0.00-0.10); Basophils % (A) 0.5 %; Eosinophils # (A) 0.07 X 10*3/uL (0.04-0.35); Eosinophils % (A) 1.1 %; HCT 40.8 % (37.2-46.3); HGB 13.2 g/dL (12.0-15.0); Lymphocytes # (A) 1.44 X 10*3/uL (0.90-5.00); Lymphocytes % (A) 22.4 %; MCH 31.2 pg (27.0-32.0); MCHC 32.4 g/dL (32.0-37.0); MCV 96.5 FL (80.0-97.0); Mean Platelet Volume 11.3 FL (9.5-12.2); Monocytes % (A) 7.8 %; NRBC Per 100 WBC 0 X 10*3/uL (0.00-0.01); Neutrophils # (A) 4.37 X 10*3/uL (1.80-7.70); Neutrophils % (A) 67.9 %; Platelet Count 338 X 10*3/uL (140-440); RBC 4.23 X 10*6/uL (4.10-5.20); RDW 14.4 % (11.5-14.5); WBC 6.43 X 10*3/uL (4.50-10.00)
[2024-02-16 13:35] LABS: BUN/Creat Ratio 23.55 Ratio (12.00-20.00); Blood Urea Nitrogen 25.9 mg/dL (9.0-27.0); Calcium 9.7 mg/dL (8.7-10.3); Carbon Dioxide 22.3 mmol/L (21.6-31.8); Chloride 106 mmol/L (96-109); Glucose 108 mg/dL (70-110); Potassium 4.8 mmol/L (3.5-5.5); Sodium 141 mmol/L (135-145)
== END | disposition home or self-care (01) ==
LOC: LABWHC1 07:54
PROVIDERS: ATTEND Orthopaedic Surgery
DX: Z01.818 Encounter for other preprocedural examination (principal); M87.052 Idiopathic aseptic necrosis of left femur
CPT/HCPCS: 36415; 80048; 85025; 85610; 85730; 93005

== ENCOUNTER → 2024-03-01 | Outpatient (CLI) | payer BC | END | disposition home or self-care (01) | LOC: LABPAT 08:08 | PROVIDERS: ATTEND Orthopaedic Surgery | DX: Z01.812 Encounter for preprocedural laboratory examination (principal); Z22.322 Carrier or suspected carrier of Methicillin resistant Staphylococcus aureus; M87.052 Idiopathic aseptic necrosis of left femur | CPT/HCPCS: 36415; 86850; 86900; 86901; 87070 ==

== ENCOUNTER 2024-03-11 05:41 | Day surgery (SDC) | payer BC ==
--- NOTE | 2024-03-10 08:39 | P.HPOR ---
History of Present Illness H&P Date: 03/10/24 Chief Complaint: Left hip pain The patient is a 48-year-old female who presents with progressive left hip pain for the past several years. It's worsened recently. She's having groin and thigh pain with weightbearing activities. She is also having night symptoms. She's tried medications without much relief. She has a history of avascular necrosis involving both hips. 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 of spontaneous pneumothorax x2, hx. avascular necrosis, resolving UTI-finishing A/B History of Any Multi-Drug Resistant Organisms: None Reported Past Surgical History: Appendectomy, Cholecystectomy, Ear Surgery, Joint Replacement Additional Past Surgical History / Comment(s): liver transplant 1997, lung surgery due to pneumothorax, right hip replaced, colonoscopy Past Anesthesia/Blood Transfusion Reactions: No Reported Reaction Additional Past Anesthesia/Blood Transfusion Reaction / Comment(s): after ear surgery pt said she came out of anesthesia "real fast" and caused some anxiety Smoking Status: Never smoker - Past Family History Mother Family Medical History: No Reported History Medications and Allergies Home Medications Medication Instructions Recorded Confirmed Type Atorvastatin [Lipitor] 20 mg PO HS 09/08/22 03/07/24 History Butalb/Acetaminophen/Caffeine 1 each PO DIRECTED PRN 09/08/22 03/07/24 His tory [Fioricet 50-300-40 mg Capsule] LORazepam [Ativan] 1 mg PO DIRECTED PRN 09/08/22 03/07/24 History Magnesium Oxide [Magnesium] 400 mg PO HS 09/08/22 03/07/24 History Magnesium Oxide [Magnesium] 400 mg PO QAM 09/08/22 03/07/24 History Norethindrone [Elysia] 0.35 mg PO DAILY 09/08/22 03/07/24 History Omeprazole 20 mg PO HS 09/08/22 03/07/24 History amLODIPine BESYLATE/BENAZEPRIL 1 cap PO DAILY 09/08/22 03/07/24 History [amLODIPine BESYLATE/BENAZEPRIL 5-20 mg] azaTHIOprine [Imuran] 100 mg PO HS 09/08/22 03/07/24 History Cephalexin [Keflex] 500 mg PO Q12HR 03/07/24 03/07/24 History Cholecalciferol [Vitamin D3 (25 25 mcg PO DAILY 03/07/24 03/07/24 History Mcg = 1000 Iu)] Ferrous Sulfate [Feosol] 65 mg PO DAILY 03/07/24 03/07/24 History cycloSPORINE [cycloSPORINE (GEQ 50 mg PO BID 03/07/24 03/07/24 History for SandIMMUNE)] Allergies Allergy/AdvReac Type Severity Reaction Status Date / Time casirivimab Allergy Rash/Hives Verified 03/07/24 09:53 fluconazole [From Diflucan] Allergy Rash/Hives Verified 03/07/24 09:53 levofloxacin [From Levaquin] Allergy Rash/Hives Verified 03/07/24 09:53 nitrofurantoin Allergy Rash/Hives Verified 03/07/24 09:53 Penicillins Allergy Rash/Hives Verified 03/07/24 09:53 Sulfa (Sulfonamide Allergy Rash/Hives Verified 03/07/24 09:53 Antibiotics) morphine AdvReac Itching Verified 03/07/24 09:53 Physical Examination - Hip left Gait: antalgic Tenderness with palpation: anterior Pain with motion: internal rotation and hip flexion ROM: flexion: 80 degrees ROM: internal rotation: 0 degrees (With pain) ROM: external rotation: 60 degrees Strength: extension: 5/5 Strength: flexion: 5/5 Strength: abduction: 5/5 Tests: impingement tests: positive Results The patient is a well-developed well-nourished female approximately 5 foot 7, 160 pounds a mesomorphic habits. HEENT exam is nonfocal, neck is supple. She has painful passive motion of the left hip. Straight leg raise is negative. Her distal neurovascular exam appears intact in the left lower extremity. - Diagnostic results Hip MRI: image reviewed (MRI of the left hip shows evidence of avascular necrosis with significant subchondral changes.) Assessment and Plan Assessment: Left hip avascular necrosisstage III Preet's disease History of liver transplant Right total hip arthroplasty Plan: The patient length regarding her condition will treatment options. At this point she is quite symptomatic and opts to proceed with surgery. We'll plan to proceed with left total hip arthroplasty utilizing an anterior approach. Risks and benefits were discussed at length in layman's terms. Potentially we will perform that as an outpatient procedure.
[~2024-03-11 05:41] MED LIST changes: -LIDOCAINE 1% (10MG/ML) FOR IV START INTRADERMA PRN; +TRANEXAMIC 1,000 MG/100ML-NACL 1,000 MG in SALINE 1 100ML.BAG IVPB PRN
[2024-03-11] MEDS: DEXAMETHASONE SOD PHOSPHATE 4 MG/ML 1 ML VIAL IV ONE (06:44)
[2024-03-11] MEDS: ONDANSETRON 4 MG/2 ML VIAL IVP ONE (06:44)
[2024-03-11] MEDS: MELOXICAM 7.5 MG TAB PO PRN (06:44)
[2024-03-11] MEDS: LACTATED RINGERS 1,000 ML IV SCH (06:44)
[2024-03-11] MEDS: ACETAMINOPHEN TAB 500 MG TAB PO PRN (06:44)
[2024-03-11] MEDS: IV FLUID CONTINUATION 1,000 ML IV ONE ×2 (06:45→09:44)
[2024-03-11] MEDS: fentaNYL (PF) 50 MCG/ML 2 ML AMP IVP STA (06:55)
[2024-03-11] MEDS: MIDAZOLAM 2 MG/2 ML VIAL IV STA (06:55)
[2024-03-11] MEDS ORDERED: GLYCOPYRROLATE 0.2 MG/ML 2 ML VIAL ONE (07:25)
[2024-03-11] MEDS ORDERED: ROCURONIUM 10 MG/ML (5 ML VIAL) IV ONE (07:25)
[2024-03-11] MEDS ORDERED: LIDOCAINE 1% INJ 10MG/ML (20 ML MDV) ONE (07:25)
[2024-03-11] MEDS ORDERED: fentaNYL (PF) 50 MCG/ML 2 ML AMP ONE (07:25)
[2024-03-11] MEDS ORDERED: NEOSTIGMINE 1 MG/ML 10 ML VIAL ONE (07:25)
[2024-03-11] MEDS ORDERED: PROPOFOL 10 MG/ML 20 ML VIAL IV ONE (07:25)
[2024-03-11] MEDS ORDERED: SUCCINYLCHOLINE CHLORIDE 200 MG/10 ML VIAL IV ONE (07:25)
[2024-03-11] MEDS ORDERED: ROPIVACAINE 5 MG/ML 30 ML VIAL ONE (07:25)
[2024-03-11] MEDS ORDERED: MIDAZOLAM 2 MG/2 ML VIAL ONE (07:25)
[2024-03-11] MEDS: ceFAZolin 1,000 MG in SODIUM CHLORIDE 0.9% 1,000 ML IRRIGATION ONE (08:00)
--- NOTE | 2024-03-11 08:06 | P.ANPRN ---
Procedure Note - Anesthesia - Nerve Block Performed Left Alek Single Time Out Performed: Yes (655) Date of Procedure: 03/11/24 Procedure Start Time: 06:56 Procedure Stop Time: 06:59 Location of Patient: PreOp Indication: Acute Post-Operative Pain, Requested by Surgeon Specifically requested for management of pain by DrJennifer: Leroy Carreno Sedation Type: Sedate with meaningful contact maintained Preparation: Sterile Prep Position: Supine Catheter: None Needle Types: Pajunk Needle Gauge: 21 Ultrasound used to visualize needle placement: Yes Ultrasound used to observe medication spread: Yes Injectate: 0.5% Ropivacaine (see comment for volume) (30cc) Blood Aspirated: No Pain Paresthesia on Injection Noted: No Resistance on Injection: Normal Image Stored and Saved: Yes Events: Uneventful and Well Tolerated
[2024-03-11] MEDS ORDERED: HYDROmorphone 0.5 MG/0.5 ML SYRINGE IVP PRN (09:12)
[2024-03-11] MEDS ORDERED: HYDROcodone/APAP 5-325MG 1 EACH TAB PO PRN (09:12)
[2024-03-11] MEDS ORDERED: MAGNESIUM HYDROXIDE 2,400 MG/30 ML CUP PO PRN (09:12)
[2024-03-11] MEDS ORDERED: NALOXONE 0.4 MG/ML 1 ML VIAL IV PRN (09:12)
--- NOTE | 2024-03-11 09:26 | P.OP ---
Date of Procedure: 03/11/24 Preoperative Diagnosis: Left hip avascular necrosisstage III Postoperative Diagnosis: Same Procedure(s) Performed: Left total hip arthroplastypress-fitanterior approach Implants: Depuy Corail size 11-125 degreecollared press-fit femoral stem, 36+1.5 ceramic femoral head, 52 mm [place] acetabular shell with neutral polyethylene liner. A 6.5 x 25 mm cancellous screw was also utilized. Anesthesia: GETA Surgeon: Leroy Carreno Treasurer #1: Hilton Merino Estimated Blood Loss (ml): 150 Pathology: none sent Condition: stable Disposition: PACU Indications for Procedure: The patient is a 48-year-old female who presents with progressive left hip pain secondary to avascular necrosis. Clinically and by x-ray she had progression of her disease. A discussion of the risks and benefits of operative intervention was made with the patient. She opted to proceed. Operative risks include infection, neurovascular injury, leg length discrepancy, fracture, possible instability, possible component loosening/failure and possible need for subsequent procedures was discussed. Informed consent was obtained. Operative Findings: As below Description of Procedure: The patient was brought to the operating room, and after induction of spinal anesthesia was placed supine on the Maureen table. Positioning was checked with fluoroscopy. The left hip was then prepped and draped in a normal fashion. A 12 cm incision was then made starting 2 fingerbreadths distal and 3 finger breaths posterior to the ASIS in line with the proximal femur. The skin was incised sharply. Subcutaneous tissues were divided sharply. Electrocautery was used for hemostasis. The fascia was split in line with skin incision. The interval between the sartorius and tensor fascia quintin was then bluntly d eveloped. The posterior fascia was opened with electrocautery. The lateral circumflex vessels were identified and cauterized prior to sectioning. A retractor was placed along the superior femoral neck as well as the anterior acetabular rim. A wide capsulotomy was performed. The neck cut was then made at a 45 angle to the shaft approximately 1 1/2 cm above the level of the lesser trochanter. The head was extracted. Attention was then paid towards preparing the acetabulum. Anterior and posterior retractors were placed. The remaining capsular labral tissue sharply debrided clearly defining the acetabular margins. I began reaming with a 45 mm reamer taking care to initially medialize then reaming at 45 of abduction and 20 of anteversion. Sequential reaming is performed up to 51 mm. A trial 52 mm acetabular shell was inserted in the same orientation and was fully seated. There was good rim fit and stability. Positioning was checked with fluoroscopy. The final 52 mm acet abular shell was inserted again at 45 of abduction and 20 of anteversion. This was fully seated. There was good rim fit and stability. I did place a posterior superior 6.5 mm x 25 mm cancellous screw with good purchase. Again fluoroscopy was used to check the adequacy of placement. A neutral polyethylene liner was gently impacted. Care was taken to avoid any soft tissue interposition. Pulsatile lavage was utilized. Attention was then paid towards preparing the proximal femur. The central region was cleared of soft tissue. A canal finder was used to find the femoral canal. Sequential broaching was performed up to size 11 taking care to lateralize proximally. A calcar mill was used to fashion the medial calcar. There was good rotational stability. A 125 degree neck along with a 36 mm +1.5 head was placed. The hip was gently reduced. Fluoroscopy was used to check the adequacy of positioning along with leg lengths. I felt both were good. The hip was gently dislocated. The trial components were removed. The final size 11 collared 125 degree press-fit femoral stem was inserted parallel to the posterior cortex. This was fully seated and there was good rotational stability. A 36 mm +1.5 ceramic femoral head was placed. This was gently impacted. The hip was then gently reduced. Final fluoroscopic view showed adequate placement implant along with hindu of leg length. Stability was checked with 80 of external rotation and 60 of extension of the right hip. The wound was irrigated with sterile lavage. The fascia was closed with running 0 Vicryl suture. There was minimal drainage therefore a deep drain was not placed. The second dose of IV TXA was given. The subcutaneous tissues were reapproximated interrupted 2-0 Vicryl sutures. The skin was reapproximated with 3-0 subcuticular strata fix suture. Skin tape and adhesive was applied. A sterile dressing was applied. The patient was then awoken from sedation and transferred to recovery room in good condition. Blood loss was estimated at 150 mL. No complications were incurred. Sponge and needle counts were correct at the end of the case. Hilton HAIRSTON assisted during the major components is case to include exposure, bone resection, implantation, and closure.
[2024-03-11] MEDS: fentaNYL (PF) 50 MCG/ML 2 ML AMP IV PRN (09:35)
--- NOTE | 2024-03-11 10:08 | XR ---
EXAMINATION TYPE: XR Hip Limited LT DATE OF EXAM: 03/11/2024 9:45 AM CLINICAL INDICATION:Female, 48 years old with history of Status post hip surgery, assess surgical ali gnment; [facility] COMPARISON: None. TECHNIQUE: XR Hip Limited LT; hip was examined in the frontal. FINDINGS: Post arthroplasty changes, hardware is intact, alignment is appropriate. No evidence of fra cture. Postoperative changes of the soft tissues with subcutaneous gas. No evidence of any acute osse ous pathology or joint dislocation. IMPRESSION: Hip arthroplasty with hardware intact and in appropriate alignment. No acute fracture.
[2024-03-11] MEDS: HYDROmorphone 0.5 MG/0.5 ML SYRINGE IVP STA (10:26)
--- NOTE | 2024-03-11 10:30 | XR ---
EXAMINATION TYPE: XR Hip Limited LT Intraoperative/procedural fluoroscopic services were provided. To radha fluoroscopy time is 27.1 seconds with a total of 3 submitted images to PACS. Please see the opera tive/procedural note for further details. DAP: 1.6224 Gycm2
--- NOTE | 2024-03-11 10:36 | FL ---
EXAMINATION TYPE: FL guidance operating room Intraoperative/procedural fluoroscopic services were pro vided. Total fluoroscopy time is 27 seconds with a total of 3 submitted images to PACS. Please see th e operative/procedural note for further details. DAP: 1.6224 mGym2
[2024-03-11] MEDS: HYDROmorphone 0.5 MG/0.5 ML SYRINGE IVP PRN (10:37)
[2024-03-11] MEDS: HYDROcodone/APAP 7.5-325MG 1 EACH TAB PO PRN (14:21)
[2024-03-11] MEDS ORDERED: LORazepam 1 MG TAB PO PRN (14:40)
--- NOTE | 2024-03-11 15:25 | P.CONS ---
History of Present Illness - Reason for Consult Consult date: 03/11/24 Medical Management Requesting physician: Leroy Carreno - History of Present Illness History of Presenting Illness: Patient is a pleasant 48-year-old female with a past medical history of Preet's disease status post liver transplant 1997, previous pneumothorax, hypertension, hyperlipidemia, GERD, anxiety, and avascular necrosis. She is currently admitted under orthopedic surgery team status post left total hip arthroplasty secondary to left hip avascular necrosis stage III. We were consulted for medical management throughout hospitalization. Patient was seen and fully evaluated at bedside in room 453. She currently reports postoperative pain is controlled and reports is only being mild at this time. She denies having any postoperative nausea or vomiting. She states she has not yet been out of bed or attempted to urinate since completion of surgical procedure. She denies history of DVT or PEs. She reports taking her antirejection medications this morning and states she is not due again until tonight. She denies having any headache, lightheadedness, dizziness, chest pain, palpitations, shortness of breath, cough or congestion, abdominal pain, or experiencing any numbness or weakness in her extremities. Review of systems: Pertinent positives and negatives as discussed in HPI, a complete review of systems was performed and all other systems are negative. Physical exam: Vital signs reviewed and stable. General: Nontoxic, no distress and appears stated age. Derm: Skin warm and dry, normal coloration for ethnicity. Head: Atraumatic, normocephalic and symmetric. Eyes: EOMs intact, no lid lag, and anicteric sclera Mouth: no lip lesions, mucus membranes moist Cardiovascular: regular rate and rhythm with normal S1S2, no murmur, positive p osterior tibial pulses bilaterally, and cap refill < 2 seconds. Lungs: Respirations even, regular, and unlabored on room air. Lungs CTA bilaterally, no rhonchi, no rales, no wheezing, and no accessory muscle usage. Abdominal: soft, nontender to palpation, no guarding, no appreciable organomegaly Ext: No gross muscle atrophy, no edema, no contractures. Movement and sensation intact of bilateral lower extremities. Post operative dressing in place to left hip. Neuro: Speech clear, face symmetrical and CN II-XII grossly intact with no noted focal neuro deficits Psych: Alert and oriented to person, place, time, and situation. Appropriate and pleasant affect. Assessment and Plan of Care: Status post left total hip arthroplasty Avascular necrosis -Management per primary admitting orthopedic surgery team including DVT prophylaxis, pain management, wound/dressing management, weightbearing, and PT/OT. -Currently DVT prophylaxis with Xarelto 10 mg daily. -Will follow-up on postoperative CBC, CMP, and magnesium. Wilsons disease status post liver transplant -Patient to continue with cyclosporine 50 mg twice daily and Imuran 100 mg daily. Hypertension -Continue daily medication regimen with amlodipine 5 mg daily and lisinopril 20 mg daily. Hyperlipidemia -Continue daily medication regimen with atorvastatin 20 mg nightly. GERD Continue Protonix 40 mg nightly. Data and imaging reviewed: Reviewed operative notes. Reviewed preoperative labs completed 02/16/2024 showing hemoglobin 13.2 and platelet count of 338. Vital signs reviewed. Blood pressure 135/88, heart rate 76, respiratory rate 18, temp 98.2 F, and SpO2 of 98% on room air. Thank you for allowing us to participate in the care of this pleasant patient. Do not hesitate to contact us with questions. Someone can be reached from the [facility] hospitalist group all hours of the day at [phone] or via [employer]. Patient was seen independently by Nurse Practitioner. This document was prepared using [employer] dictation software. Please allow for errors in train examiner while rare they do occur. Salvador Guillen NP rendered care for this patient independently, reviewed the findings and plan as documented in the note above. I did not physically speak with or examine the patient on this date. Past Medical History Past Medical History: GERD/Reflux, Hyperlipidemia, Hypertension, Liver Disease Additional Past Medical History / Comment(s): hx. wilsons disease-had liver transplant, anemia, hx. of spontaneous pneumothorax x2, hx. avascular necrosis, resolving UTI-finishing A/B History of Any Multi-Drug Resistant Organisms: None Reported Past Surgical History: Appendectomy, Cholecystectomy, Ear Surgery, Joint Repla cement Additional Past Surgical History / Comment(s): liver transplant 1997, lung surgery due to pneumothorax, right hip replaced, colonoscopy Past Anesthesia/Blood Transfusion Reactions: No Reported Reaction Additional Past Anesthesia/Blood Transfusion Reaction / Comm: after ear surgery pt said she came out of anesthesia "real fast" and caused some anxiety Past Psychological History: Anxiety Smoking Status: Never smoker Past Alcohol Use History: None Reported Past Drug Use History: None Reported - Past Family History Mother Family Medical History: No Reported History Medications and Allergies Home Medications Medication Instructions Recorded Confirmed Type Atorvastatin [Lipitor] 20 mg PO HS 09/08/22 03/11/24 History Butalb/Acetaminophen/Caffeine 1 each PO DIRECTED PRN 09/08/22 03/11/24 History [Fioricet 50-300-40 mg Capsule] LORazepam [Ativan] 1 mg PO DIRECTED PRN 09/08/22 03/11/24 History Magnesium Oxide [Magnesium] 400 mg PO HS 09/08/22 03/11/24 History Magnesium Oxide [Magnesium] 400 mg PO QAM 09/08/22 03/11/24 History Norethindrone [Elysia] 0.35 mg PO DAILY 09/08/22 03/11/24 History Omeprazole 20 mg PO HS 09/08/22 03/11/24 History amLODIPine BESYLATE/BENAZEPRIL 1 cap PO DAILY 09/08/22 03/11/24 History [amLODIPine BESYLATE/BENAZEPRIL 5-20 mg] azaTHIOprine [Imuran] 100 mg PO HS 09/08/22 03/11/24 History Cephalexin [Keflex] 500 mg PO Q12HR 03/07/24 03/11/24 History Cholecalciferol [Vitamin D3 (25 25 mcg PO DAILY 03/07/24 03/11/24 History Mcg = 1000 Iu)] Ferrous Sulfate [Iron (65 MG 65 mg PO DAILY 03/07/24 03/11/24 History Elemental)] cycloSPORINE [SandIMMUNE] 50 mg PO BID 03/07/24 03/11/24 History Apixaban [Eliquis] 2.5 mg PO BID #60 tab 03/11/24 Rx Cephalexin [Keflex] 500 mg PO Q6HR #28 cap 03/11/24 Rx HYDROcodone/APAP 5-325MG [[place] 1 - 2 tab PO Q6HR PRN #32 tab 03/11/24 Rx 5-325] Sennosides/Docusate Sodium [Senna 1 each PO DAILY #20 capsule 03/11/24 Rx Plus 8.6-50 mg Softgel] Allergies Allergy/AdvReac Type Severity Reaction Status Date / Time casirivimab Allergy Rash/Hives Verified 03/11/24 06:23 fluconazole [From Diflucan] Allergy Rash/Hives Verified 03/11/24 06:23 levofloxacin [From Levaquin] Allergy Rash/Hives Verified 03/11/24 06:23 nitrofurantoin Allergy Rash/Hives Verified 03/11/24 06:23 Penicillins Allergy Rash/Hives Verified 03/11/24 06:23 Sulfa (Sulfonamide Allergy Rash/Hives Verified 03/11/24 06:23 Antibiotics) morphine AdvReac Itching Verified 03/11/24 06:23 Physical Exam Vitals: Vital Signs Temp Pulse Pulse Resp BP BP Pulse Ox 03/11/24 13:51 98.2 F 76 18 135/88 98 03/11/24 13:34 98.2 F 79 17 135/88 97 03/11/24 13:30 73 16 125/69 99 03/11/24 12:30 74 16 127/75 99 03/11/24 12:00 78 16 125/64 99 03/11/24 11:30 76 16 129/79 99 03/11/24 11:15 74 16 131/82 99 03/11/24 11:00 70 16 130/72 99 03/11/24 10:45 73 16 131/77 99 03/11/24 10:30 72 16 134/72 96 03/11/24 10:15 74 16 134/74 100 03/11/24 10:00 75 16 130/74 100 03/11/24 09:45 72 16 131/75 98 03/11/24 09:30 73 16 125/72 98 03/11/24 09:21 97 F L 76 16 124/69 97 03/11/24 07:02 87 18 165/96 98 03/11/24 06:17 97.3 F L 87 18 149/83 99 Intake and Output 03/10/24 03/11/24 03/11/24 22:59 06:59 14:59 Intake Total 200 1051 Output Total 150 Balance 200 901 Intake: IV 200 1051 Output: Estimated Blood Loss 150 Other: Weight 74.8 kg 74.8 kg Results CBC & Chem 7: 03/12/24 03:09 03/12/24 03:09
[2024-03-11] MEDS: azaTHIOprine 50 MG TAB PO SCH (17:47)
[2024-03-11] MEDS: cycloSPORINE 25 MG CAP PO SCH (17:47)
[2024-03-11] MEDS: ONDANSETRON 4 MG/2 ML VIAL IVP PRN (17:55)
[2024-03-11] MEDS: SENNOSIDES-DOCUSATE SODIUM 1 EACH TAB PO SCH (19:58)
[2024-03-11] MEDS: PANTOPRAZOLE 40 MG TABLET PO SCH (19:58)
[2024-03-11] MEDS: ATORVASTATIN 20 MG TAB PO SCH (19:58)
[2024-03-11 20:22] VITALS: RESP 17
[2024-03-11] MEDS ORDERED: azaTHIOprine 50 MG TAB PO SCH (21:00)
[2024-03-11] MEDS ORDERED: cycloSPORINE 25 MG CAP PO SCH (21:00)
[2024-03-12] MEDS: NON FORMULARY DRUG (Norethindrone [Camila] 0.35 MG Tablet) PO SCH (08:11)
[2024-03-12] MEDS: FERROUS SULFATE 325 MG TAB PO SCH (08:21)
[2024-03-12] MEDS: RIVAROXABAN 10 MG TAB PO SCH (08:22)
[2024-03-12] MEDS: lisinopriL 20 MG TAB PO SCH (08:22)
[2024-03-12] MEDS: amLODIPine 5 MG TAB PO SCH (08:22)
[2024-03-12] MEDS: CHOLECALCIFEROL 25 MCG (1000 IU) TABLET PO SCH (08:22)
[2024-03-12 08:29] VITALS: BP 143/87; PULSE 92; TEMP 98.3
[2024-03-12 08:39] LABS: Basophils # (A) 0.01 X 10*3/uL (0.00-0.10); Basophils % (A) 0.1 %; Eosinophils # (A) 0 X 10*3/uL (0.04-0.35); Eosinophils % (A) 0 %; HCT 35.7 % (37.2-46.3); HGB 11.4 g/dL (12.0-15.0); Lymphocytes # (A) 1.12 X 10*3/uL (0.90-5.00); Lymphocytes % (A) 13.6 %; MCH 32.2 pg (27.0-32.0); MCHC 31.9 g/dL (32.0-37.0); MCV 100.8 FL (80.0-97.0); Monocytes # (A) 0.85 X 10*3/uL (0.20-1.00); Monocytes % (A) 10.3 %; NRBC Per 100 WBC 0 X 10*3/uL (0.00-0.01); Neutrophils # (A) 6.21 X 10*3/uL (1.80-7.70); Neutrophils % (A) 75.6 %; Platelet Count 260 X 10*3/uL (140-440); RBC 3.54 X 10*6/uL (4.10-5.20); RDW 14.6 % (11.5-14.5); WBC 8.22 X 10*3/uL (4.50-10.00)
[2024-03-12 08:47] LABS: ALT 25 U/L (8-44); AST 29 U/L (13-35); Albumin 3.7 g/dL (3.8-4.9); Albumin/Globulin Ratio 1.68 Ratio (1.60-3.17); Alkaline Phosphatase 99 U/L (41-126); Blood Urea Nitrogen 20.5 mg/dL (9.0-27.0); Calcium 9.1 mg/dL (8.7-10.3); Carbon Dioxide 23.4 mmol/L (21.6-31.8); Chloride 104 mmol/L (96-109); Globulin 2.2 g/dL (1.6-3.3); Glucose 101 mg/dL (70-110); Magnesium 1.7 mg/dL (1.5-2.4); Potassium 5.2 mmol/L (3.5-5.5); Sodium 140 mmol/L (135-145); Total Bilirubin 0.3 mg/dL (0.3-1.2); Total Protein 5.9 g/dL (6.2-8.2)
--- NOTE | 2024-03-12 09:16 | P.DS ---
Providers Date of admission: 03/11/2024 Expected date of discharge: 03/12/24 Attending physician: Leroy Carreno Consults: 03/11/24 13:08 Consult Physician Routine Consulting Provider: Demetris Bradley Consult Reason/Comments: Medical Management s/p left total hip arthroplasty Do you want consulting provider notified?: Yes Primary care physician: [facility] Course: Date of admission: 03/11/2024 Date of discharge: 03/12/2024 Admission diagnosis: Left hip osteoarthritis Discharge diagnosis: Same Attending physician: Wai Surgical procedures: Direct anterior left total hip arthroplasty Brief history: Patient is a 48-year-old female with a history of progressive primary left hip osteoarthritis. At this point patient has failed conservative treatment measures and has opted to proceed with a elective direct anterior left total hip arthroplasty. Hospital course: Details of patient's surgery can be found in operative report. Patient tolerated the procedure well and was subsequently transported to orthopedic floor. Patient's orthopeidc and medical care was provided daily. Patient had daily laboratory tests performed for evaluation of overall blood counts. Patient had daily physical therapy to include strengthening range of motion as well as education with walker ambulation. Patient was treated with Xarelto for their postoperative DVT prophylaxis during their inpatient stay. Patient was noted to have a relatively uneventful postoperative course. Patient reported satisfactory pain control with oral pain medications by postoperative day 1. Patient showed satisfactory progress with physical therapy. Patient moved steadily through the program and had no difficulty meeting the goals by postoperative day 1. Given patient's otherwise satisfactory course and having met physical therapy goals, plan is to discharge patient home with health services on postoperative day 1. Discharge condition/disposition: Patient will be discharged home with health services in stable condition. Discharge medications: Instructions are given on resumption of patient's normal daily medications per primary care recommendation, in addition patient will be prescribed Smithers; senna; Eliquis; Keflex. Discharge instructions: 1. Wound care and infection precautions, keep incision dry and covered while showering, no lotions, creams, moisturizers. No soaking, tubs, pools, hottubs. Do not scrub over the incision. 2. Weight-bear as tolerated with walker / cane until follow-up. 3. Ice and elevate when necessary. Do not exceed 20 minutes per hour with ice pack. 4. Utilize compression sleeve until seen at first follow up appointment. 5. Visiting nursing care. 6. Home physical therapy. 7. Pain meds and anticoagulants per prescription. 8. Pain medication has potential to cause constipation. Increase oral fluid and fiber intake. Contact primary care provider if you have not had a bowel movement within 48 hours after discharge 9. No anti-inflammatory medication until discussed at first post operative visit, this including Motrin, Aleve, Mobic, Diclofenac. 10. Follow up in office at 2 weeks postop with Tristen Finley PA-C / Hilton Merino PA-C 11. Follow up with your primary care doctor 7-10 days after discharge. 12. Contact [facility] with any questions, . Assessment: Left hip osteoarthritis Procedures: Direct anterior left total hip arthroplasty Patient Condition at Discharge: Good Plan - Discharge Summary Discharge Rx Participant: Yes New Discharge Prescriptions: New Apixaban [Eliquis] 2.5 mg PO BID #60 tab Cephalexin [Keflex] 500 mg PO Q6HR #28 cap Sennosides/Docusate Sodium [Senna Plus 8.6-50 mg Softgel] 1 each PO DAILY #20 capsule HYDROcodone/APAP 5-325MG [Smithers 5-325] 1 - 2 tab PO Q6HR PRN #32 tab PRN Reason: Pain No Action LORazepam [Ativan] 1 mg PO DIRECTED PRN PRN Reason: Anxiety amLODIPine BESYLATE/BENAZEPRIL [amLODIPine BESYLATE/BENAZEPRIL 5-20 mg] 1 cap PO DAILY Omeprazole 20 mg PO HS Atorvastatin [Lipitor] 20 mg PO HS azaTHIOprine [Imuran] 100 mg PO HS Magnesium Oxide [Magnesium] 400 mg PO HS cycloSPORINE [cycloSPORINE (GEQ for SandIMMUNE)] 50 mg PO BID Cholecalciferol [Vitamin D3 (25 Mcg = 1000 Iu)] 25 mcg PO DAILY Magnesium Oxide [Magnesium] 400 mg PO QAM Butalb/Acetaminophen/Caffeine [Fioricet 50-300-40 mg Capsule] 1 each PO DIRECTED PRN PRN Reason: Migraine Headache Norethindrone [Elysia] 0.35 mg PO DAILY Ferrous Sulfate [Feosol] 65 mg PO DAILY Cephalexin [Keflex] 500 mg PO Q12HR Discharge Medication List Atorvastatin [Lipitor] 20 mg PO HS 09/08/22 [History] Butalb/Acetaminophen/Caffeine [Fioricet 50-300-40 mg Capsule] 1 each PO DIRECTED PRN 09/08/22 [History] LORazepam [Ativan] 1 mg PO DIRECTED PRN 09/08/22 [History] Magnesium Oxide [Magnesium] 400 mg PO HS 09/08/22 [History] Magnesium Oxide [Magnesium] 400 mg PO QAM 09/08/22 [History] Norethindrone [Elysia] 0.35 mg PO DAILY 09/08/22 [History] Omeprazole 20 mg PO HS 09/08/22 [History] amLODIPine BESYLATE/BENAZEPRIL [amLODIPine BESYLATE/BENAZEPRIL 5-20 mg] 1 cap PO DAILY 09/08/22 [History] azaTHIOprine [Imuran] 100 mg PO HS 09/08/22 [History] Cephalexin [Keflex] 500 mg PO Q12HR 03/07/24 [History] Cholecalciferol [Vitamin D3 (25 Mcg = 1000 Iu)] 25 mcg PO DAILY 03/07/24 [History] Ferrous Sulfate [Feosol] 65 mg PO DAILY 03/07/24 [History] cycloSPORINE [cycloSPORINE (GEQ for SandIMMUNE)] 50 mg PO BID 03/07/24 [History] Apixaban [Eliquis] 2.5 mg PO BID #60 tab 03/11/24 [Rx] Cephalexin [Keflex] 500 mg PO Q6HR #28 cap 03/11/24 [Rx] HYDROcodone/APAP 5-325MG [Smithers 5-325] 1 - 2 tab PO Q6HR PRN #32 tab 03/11/24 [Rx] Sennosides/Docusate Sodium [Senna Plus 8.6-50 mg Softgel] 1 each PO DAILY #20 capsule 03/11/24 [Rx] Follow up Appointment(s)/Referral(s): Hilton Merino, ADRIANO [PHYSICIAN SPACE OPERATIONS OFFICER] - 2 Weeks Patient Instructions/Handouts: Anterior Hip Replacement (DC), Anterior Hip Replacement (GEN) Activity/Diet/Wound Care/Special Instructions: Orthopedic Discharge Instructions: 1. Wound care and infection precautions, keep incision dry and covered while showering, no lotions, creams, moisturizers. No soaking, pools, hot tubs. Do not scrub over incision. 2. Weight-bear as tolerated with walker / cane until follow-up. 3. Ice and elevate when necessary. Do not exceed 20 minutes per hour with ice pack. 4. Utilize compression sleeve until seen at first follow up appointment. 5. Pain meds and anticoagulants per prescription. 6. Pain medication has potential to cause constipation. Increase oral fluid and fiber intake. Contact primary care provider if you have not had a bowel movement within 48 hours after discharge. 7. No anti-inflammatory medication until discussed at first post operative visit, this including Motrin, Aleve, Mobic, Diclofenac. 8. Follow up in office at 2 weeks postop with Tristen Finley PA-C / Hilton Merino PA-C 9. Follow up with your primary care doctor 7-10 days after discharge. 10. Contact [facility] with any questions, . Keep incision clean, dry, intact. While showering, cover fusion tape with saran wrap. Keep fusion tape on until follow-up appointment in office in 2 weeks Discharge Disposition: HOME WITH HOME HEALTH SERVICES
--- NOTE | 2024-03-12 09:47 | P.PN ---
Subjective Progress Note Date: 03/12/24 Principal diagnosis: Left hip avascular necrosis Patient was seen at bedside this morning sitting up in chair with dressing present over left hip. Patient says she just finished working with physical therapy and did well. She says she walked out of the hallway and up and down s tairs. She says she has urinated since yesterday without issue. Patient says she does have a walker for home. Patient denies chest pain, fever, shortness of breath, nausea, vomiting, change in vision, loss of bowel/bladder control. Objective - Vital Signs Vital signs: Vital Signs Temp 98.3 F 03/12/24 07:10 Pulse 92 03/12/24 07:10 Resp 17 03/12/24 07:10 BP 143/87 03/12/24 07:10 Pulse Ox 95 03/12/24 07:10 FiO2 Intake & Output 03/11/24 03/12/24 03/12/24 18:59 06:59 18:59 Intake Total 1051 Output Total 150 Balance 901 Weight 74.8 kg Intake: IV 1051 Output: Estimated Blood Loss 150 Other: Voiding Method Toilet # Voids 1 2 - Exam Left hip: Incision is clean, dry, and intact. The exofin fusion tape is in good condition. There is minimal soft tissue swelling and ecchymosis surrounding the medial and lateral aspects of the incision. Calf is soft, no tenderness with palpation. Plantar flexion, dorsiflexion, EHL, FHL are intact. Sensory exam to light touch throughout the extremity is intact, dorsal pedis pulses 2+. - Labs CBC & Chem 7: 03/12/24 03:09 03/12/24 03:09 Labs: Abnormal Lab Results - Last 24 Hours (Table) 03/12/24 03/12/24 Range/Units 03:09 03:09 RBC 3.54 L (4.10-5.20) X 10*6/uL Hgb 11.4 L (12.0-15.0) g/dL Hct 35.7 L (37.2-46.3) % MCV 100.8 H (80.0-97.0) FL MCH 32.2 H (27.0-32.0) pg MCHC 31.9 L (32.0-37.0) g/dL RDW 14.6 H (11.5-14.5) % Eosinophils # 0 L (0.04-0.35) X 10*3/uL Anion Gap 12.60 H (4.00-12.00) mmol/L BUN/Creatinine Ratio 20.50 H (12.00-20.00) Ratio Total Protein 5.9 L (6.2-8.2) g/dL Albumin 3.7 L (3.8-4.9) g/dL Assessment and Plan Assessment: 1. Left hip avascular necrosis -Postop day 1 status post direct anterior left total hip arthroplasty Plan: 1. Left hip avascular necrosis -direct anterior left total hip arthroplasty form yesterday, 03/11/2024. Patient stable at bedside this morning. Patient did do well with therapy this morning. Patient does have a walker for home. Discharge home today with health services 2. Appreciate medical management 3. Pain management -[place] 4. DVT prophylaxis -Xarelto on hospital. Going home with Eliquis 2.5 mg twice daily x 2 weeks 5. GI prophylaxis -senna 6. PT/OT -weightbearing as tolerated with walker 7. Encourage incentive spirometer use 8. Discharge planning -home today with health services Time with Patient: Less than 30
[2024-03-12] MEDS: MAGNESIUM OXIDE 400 MG TAB PO STA (11:16)
--- NOTE | 2024-03-12 13:08 | P.PN ---
Subjective Progress Note Date: 03/12/24 Hospital course: Patient is a pleasant 48-year-old female with a past medical history of Preet's disease status post liver transplant 1997, previous pneumothorax, hypertension, hyperlipidemia, GERD, anxiety, and avascular necrosis. She is currently admitted under orthopedic surgery team status post left total hip arthroplasty secondary to left hip avascular necrosis stage III. We were consulted for medical management throughout hospitalization. Physical exam: Patient seen and fully evaluated at bedside this morning. She is postoperative day 1. Patient reports mild to moderate postoperative pain at this time. She is currently working with physical therapy and appears to be doing well. Patient continues to deny having any postoperative nausea or vomiting reports urinating without any difficulties and denies having any numbness/tingling/weakness in her extremities. Vital signs reviewed and stable. General: Nontoxic, no distress and appears stated age. Derm: Skin warm and dry, normal coloration for ethnicity. Head: Atraumatic, normocephalic and symmetric. Eyes: EOMs intact, no lid lag, and anicteric sclera Mouth: no lip lesions, mucus membranes moist Cardiovascular: regular rate and rhythm with normal S1S2, no murmur, positive posterior tibial pulses bilaterally, and cap refill < 2 seconds. Lungs: Respirations even, regular, and unlabored on room air. Lungs CTA bilaterally, no rhonchi, no rales, no wheezing, and no accessory muscle usage. Abdominal: soft, nontender to palpation, no guarding, no appreciable organomegaly Ext: No gross muscle atrophy, no edema, no contractures. Movement and sensation intact of bilateral lower extremities. Post operative dressing in place to left hip. Neuro: Speech clear, face symmetrical and CN II-XII grossly intact with no noted focal neuro deficits Psych: Alert and oriented to person, place, time, and situation. Appropriate and pleasant affect. Assessment and Plan of Care: Acute postoperative blood loss anemia, stable and expected finding Status post left total hip arthroplasty Avascular necrosis -Management per primary admitting orthopedic surgery team including DVT prophylaxis, pain management, wound/dressing management, weightbearing, and PT/O T. -Currently DVT prophylaxis with Xarelto 10 mg daily. -Postoperative labs reviewed. CBC showing acute postoperative blood loss anemia with hemoglobin of 11.4 and preoperative hemoglobin of 13.2. BMP showing slightly elevated anion gap of 12.60 otherwise normal findings. -Operative blood loss anemia with hemoglobin of 11.4, this is a stable and expected finding. No need for blood transfusion or further interventions at this time. Hypomagnesemia -Magnesium was slightly low at 1.7 and replaced Mag-Ox 400 mg p.o. x 1 dose at this time. Wilsons Disease status post liver transplant -Patient to continue with cyclosporine 50 mg twice daily and Imuran 100 mg daily. -Discussed with patient she will need to have cyclosporine levels drawn PCP, patient reports she is having these monitored monthly with last draw being 1 week ago and reported to be therapeutic. Hypertension -Continue daily medication regimen with amlodipine 5 mg daily and lisinopril 20 mg daily. Hyperlipidemia -Continue daily medication regimen with atorvastatin 20 mg nightly. GERD Continue Protonix 40 mg nightly. Data and imaging reviewed: Postoperative labs reviewed. CBC showing acute postoperative blood loss anemia with hemoglobin of 11.4 and preoperative hemoglobin of 13.2. BMP showing slightly elevated anion gap of 12.60 otherwise normal findings. Magnesium was slightly low at 1.7 and replaced at this time. Liver profile showing hypoalbuminemia with albumin of 3.7 otherwise normal findings. Vital signs reviewed. Blood pressure 135/88, heart rate 76, respiratory rate 18, temp 98.2 F, and SpO2 of 98% on room air. Thank you for allowing us to participate in the care of this pleasant patient. Do not hesitate to contact us with questions. Someone can be reached from the [facility] hospitalist group all hours of the day at [phone] or via [employer]. Patient was seen independently by Nurse Practitioner. This document was prepared using [employer] dictation software. Please allow for errors in slotter operator helper while rare they do occur. Salvador Guillen NP rendered care for this patient independently, reviewed the findings and plan as documented in the note above. I did not physically speak with or examine the patient on this date. Objective - Vital Signs Vital signs: Vital Signs Temp 98.2 F 03/12/24 00:44 Pulse 85 03/12/24 00:44 Resp 17 03/12/24 00:44 BP 132/84 03/12/24 00:44 Pulse Ox 96 03/12/24 00:44 FiO2 Intake & Output 03/11/24 03/12/24 03/12/24 18:59 06:59 18:59 Intake Total 1051 Output Total 150 Balance 901 Weight 74.8 kg Intake: IV 1051 Output: Estimated Blood Loss 150 Other: Voiding Method Toilet # Voids 1 2 - Labs CBC & Chem 7: 03/12/24 03:09 03/12/24 03:09
== END 2024-03-12 11:24 | disposition home health service (06) ==
LOC: OR 05:41 → 4SSUR 09:14 → OR 03-12 11:24
PROVIDERS: ATTEND Orthopaedic Surgery
DX: M87.052 Idiopathic aseptic necrosis of left femur (principal); E88.09 Other disorders of plasma-protein metabolism, not elsewhere classified; E83.42 Hypomagnesemia; E83.01 Wilson's disease; E78.5 Hyperlipidemia, unspecified; D62 Acute posthemorrhagic anemia; F41.9 Anxiety disorder, unspecified; G89.18 Other acute postprocedural pain; I10 Essential (primary) hypertension; K21.9 Gastro-esophageal reflux disease without esophagitis; Z79.01 Long term (current) use of anticoagulants; Z79.899 Other long term (current) drug therapy; Z88.0 Allergy status to penicillin; Z88.1 Allergy status to other antibiotic agents; Z88.2 Allergy status to sulfonamides; Z88.3 Allergy status to other anti-infective agents; Z88.5 Allergy status to narcotic agent; Z90.49 Acquired absence of other specified parts of digestive tract; Z94.4 Liver transplant status
CPT/HCPCS: 97161; 97166; 64447; 81025; 80053; 83735; 85025; 73501; 27130; C1776; J7500; J2250; J0330; J1100; J2710; J0690 ×2; J2405; J2001; J3010; J7515 ×2; J2795; J2704; J1170

== ENCOUNTER → 2024-04-18 | Outpatient (CLI) | payer BC ==
--- NOTE | 2024-04-18 13:26 | XR ---
EXAMINATION TYPE: XR Hip Complete LT DATE OF EXAM: 04/18/2024 COMPARISON: NONE HISTORY: 03/11/2024. TECHNIQUE: One view submitted. FINDINGS: There is postsurgical change compatible hip replacement surgery. Soft tissue ossification gradient ad jacent to the greater trochanter. IMPRESSION: 1. Postoperative change stable from prior x-ray. Soft tissue ossification adjacent to the greater tr ochanter could be related to heterotopic ossification.
== END | disposition home or self-care (01) ==
LOC: RADXRMAIN 13:07
PROVIDERS: ATTEND Orthopaedic Surgery
DX: Z47.1 Aftercare following joint replacement surgery (principal)
CPT/HCPCS: 73502